=== PATIENT | male | born 1955 | race African-American/Black ===

== ENCOUNTER 2016-11-09 13:44 | Outpatient (CLI) | payer MEDICARE ==
[2016-11-09 14:50] LABS: Hemoglobin 8.2 g/dL (14.0-18.0); Mean Corpuscular HGB CONC 35.6 g/dL (32.0-36.0); Mean Corpuscular Hemoglobin 41.9 pg (27.0-31.0); Mean Corpuscular Volume 117.7 fl (80.0-94.0); Mean Platelet Volume 7.3 fL (7.4-10.4); Platelet Count 137 thou/uL (130-400); RBC Distribution Width 15.2 % (11.5-14.5); Red Blood Cell (RBC) Count 1.97 mill/uL (4.70-6.10)
[2016-11-09 14:52] LABS: Lymphocytes 78 % (21-51); Macrocytosis SLIGHT = 6-15 cells (100X) (0-5/hpf); Manual Diff?? YES; Monocytes 1 % (0-10); Neutrophil 21 % (42-75); White Blood Cell (WBC) Count 2.8 thou/uL (4.8-10.8)
[2016-11-09 14:53] LABS: MDiff Complete? YES; Rouleaux Formation SLIGHT = 1-5 cells (100X) (None Seen)
== END 2016-11-09 13:45 | disposition home or self-care (01) ==
LOC: MADLAB 13:44
PROVIDERS: ATTEND Internal Medicine Hematology & Oncology
DX: C78.00 Secondary malignant neoplasm of unspecified lung (principal); Z85.038 Personal history of other malignant neoplasm of large intestine
CPT/HCPCS: 36415; 85025

== ENCOUNTER 2018-03-29 14:40 | Outpatient (CLI) | payer MEDICARE ==
[2018-03-29 15:26] LABS: Anion Gap 21 mmol/L (10-20); BUN (Urea Nitrogen) 35 mg/dL (8.4-25.7); Calc. Creatinine Clearance 0 mL/min (70-130); Calcium 11.1 mg/dL (7.8-10.44); Carbon Dioxide 23 mmol/L (23-31); Chloride 101 mmol/L (98-107); Estimated GFR-MDRD 72; Glucose 91 mg/dL (80-115); Magnesium 1.5 mg/dL (1.6-2.6); Sodium 142 mmol/L (136-145)
== END 2018-03-29 14:41 | disposition home or self-care (01) ==
LOC: MADLABBHPM 14:40
PROVIDERS: ATTEND Family Medicine
DX: E87.6 Hypokalemia (principal)
CPT/HCPCS: 36415; 80048; 83735

== ENCOUNTER 2018-04-27 17:42 | Emergency (ER) | payer MEDICARE ==
[2018-04-27 18:09] LABS: INR-International Normal Ratio 1.4; Prothrombin Time 16.8 SEC (12.0-14.7)
[2018-04-27 18:20] LABS: ALT (SGPT) 66 U/L (8-55); AST (SGOT) 183 U/L (5-34); Albumin 2.4 g/dL (3.4-4.8); Alkaline Phosphatase 544 U/L (40-150); Anion Gap 25 mmol/L (10-20); BUN (Urea Nitrogen) 44 mg/dL (8.4-25.7); Bilirubin, Total 5.4 mg/dL (0.2-1.2); Calc. Creatinine Clearance 0 mL/min (70-130); Calcium 9.7 mg/dL (7.8-10.44); Carbon Dioxide 15 mmol/L (23-31); Chloride 108 mmol/L (98-107); Estimated GFR-MDRD 63; Magnesium 1.8 mg/dL (1.6-2.6); Potassium 4.3 mmol/L (3.5-5.1); Protein, Total 6.4 g/dL (5.8-8.1); Sodium 144 mmol/L (136-145)
[2018-04-27 18:23] LABS: CKMB 0.9 ng/mL (0-6.6); Troponin I Less than 0.010 ng/mL (< 0.028)
[2018-04-27 18:25] LABS: Anisocytosis MODERATE=16-30 cells (100X) (0-5/hpf); Band 1 % (5-11); Hemoglobin 10.7 g/dL (14.0-18.0); Lymphocytes 16 % (21-51); MDiff Complete? YES; Mean Corpuscular HGB CONC 29.3 g/dL (32.0-36.0); Mean Corpuscular Hemoglobin 27.4 pg (27.0-31.0); Mean Corpuscular Volume 93.3 fL (78.0-98.0); Monocytes 2 % (0-10); Myelocyte 1 % (0-0); Neutrophil 79 % (42-75); PLT Morphology Comment Appears Adequate; Platelet Count 306 thou/uL (130-400); Polychromasia SLIGHT = 2-3 cells (100X) (0-2/hpf); RBC Distribution Width 22.7 % (11.5-14.5); Reactive Lymphocytes 1 % (0-10); Red Blood Cell (RBC) Count 3.91 mill/uL (4.70-6.10); White Blood Cell (WBC) Count 25.8 thou/uL (4.8-10.8)
[2018-04-27 18:31] LABS: Lactic Acid 4.9 mmol/L (0.5-2.2)
[2018-04-27 18:34] LABS: Bilirubin Moderate (Negative); Blood, Urine Negative (Negative); Glucose, Urine (Dipstick) 100 mg/dL (Negative); Leukocyte Negative (Negative); Nitrite Negative (Negative); Protein, Urine (Dipstick) 30 mg/dL (Neg-Trace)
[2018-04-27 18:35] LABS: Clarity Hazy (Clear)
[2018-04-27 18:36] LABS: Glucose 56 mg/dL (80-115)
[2018-04-27 18:45] LABS: Bacteria/HPF Rare-Few HPF (None Seen); Crystals/HPF 3+ AMORPH URATES HPF (Negative); RBC/HPF None Seen HPF (0-3); Squamous Epithelial 0-3 HPF (0-3); WBC/HPF None Seen HPF (0-3)
[2018-04-27] MEDS ORDERED: Dextrose 50% Abboject 50 ML SYRINGE ONE (18:45)
[2018-04-27 18:46] LABS: Other Casts/LPF 7-10 MIXED CASTS LPF (0-3 Hyaline)
[2018-04-27] MEDS ORDERED: Sodium Chloride 0.9% 1,000 ML BAG ONE (18:50)
--- NOTE | 2018-04-27 19:15 | RAD ---
PORTABLE CHEST: 04/27/18 HISTORY: Mental status change. Weakness. COMPARISON: 04/07/18 IMPRESSION: Multiple bilateral pulmonary nodules with large mass lesion overlying the right mid lung and overlyin g the left suprahilar region. No evidence of new infiltrate or effusion. The chest findings are uncha nged from 04/07/18. POS: [facility]
== END 2018-04-27 20:35 | disposition short-term general hospital (02) ==
LOC: MADERS 17:42
DX: E16.2 Hypoglycemia, unspecified (principal); R62.7 Adult failure to thrive; R65.10 Systemic inflammatory response syndrome (SIRS) of non-infectious origin without acute organ dysfunction; N17.9 Acute kidney failure, unspecified; I10 Essential (primary) hypertension; F17.220 Nicotine dependence, chewing tobacco, uncomplicated
CPT/HCPCS: 36415; 71045; 80053; 81003; 81015; 82553; 83605; 83735; 83880; 84443; 84484; 85025; 85610; 85730; 87040; 87077; 87086; 87186; 93005; 96360; 96361; J7050